=== PATIENT | male | born 1965 | race Caucasian/White ===

== ENCOUNTER 2020-03-22 17:35 | Inpatient (IN) ==
[2020-03-22] MEDS ORDERED: NORMAL SALINE 1,000 ML IV ONE (18:21)
--- NOTE | 2020-03-22 18:34 | ERNOTE ---
Dyspnea - Date Date of Service: 03/22/20 - General Presenting Symptoms: shortness of breath Time Seen by Provider: 03/22/20 17:56 Source: patient, RN notes reviewed Exam Limitations: no limitations - Immun/Allergies/Home Medications Immunizations: IMMUNIZATION HX Immunizations Up to Date Yes History of Influenza Vaccine No Hx Pneumococcal Vaccination No Allergies/Adverse Reactions: Allergies No Known Allergies Allergy (Unverified 03/22/20 17:55) Home Medications: HOME MEDICATIONS Acetaminophen [Tylenol] 1,000 mg PO PRN PRN 03/22/20 [Last Taken Unknown] Alprazolam [Xanax] 0.25 mg PO PRN PRN 03/22/20 [Last Taken Unknown] Ibuprofen 600 mg PO PRN PRN 03/22/20 [Last Taken Unknown] Sertraline HCl [Zoloft] 75 mg PO DAILY 03/22/20 [Last Taken Unknown] - History of Present Illness Narrative: Lesley is a 54-year-old male who presents to the emergency department from home for shortness of breath. This began 2 days ago. He has not been feeling well for approximately 12 days. He initially began having severe fatigue, then body aches and then a cough. He is not sure if he has had a fever, but he reports having had chills. He has been alternating Tylenol and ibuprofen but has not had any medication recently. He has no prior history of any underlying respiratory conditions and is not a smoker. His son and the son's girlfriend t ested positive for COVID-19, as did his a couple of days later. His has recovered. His PCP is Dr. Anjali George. Date (Duration): 03/10/20 Treatment OPERATIONS ADMINISTRATOR: none Initiating event: Reports: unknown Frequency of episodes: Reports: no prior episodes Modifying Factors - (Improves): Reports: rest Modifying Factors (Worsens): Reports: activity, coughing Associated Symptoms-Dyspnea: Denies: chest pain/discomfort, leg/calf pain, ankle/leg swelling Prior Treatment: Denies: recently seen Review of Systems - Review of Systems Constitutional: Present: chills, fatigue, malaise EYE: Absent: eye pain, eye discharge ENT: Present: sore throat. Absent: ear pain, nose congestion, nasal drainage Respiratory: Present: shortness of breath, cough. Absent: orthopnea Cardiology: Absent: chest pain, edema Gastrointestinal/Abdominal: Present: diarrhea. Absent: vomiting, abdominal pain Genitourinary: Present: no symptoms reported Musculoskeletal: Present: muscle pain, joint pain Skin: Absent: rash, lesions Neurological: Absent: headache, dizziness/light-headedness Endocrine: Present: no symptoms reported Hematologic/Lymphatic: Absent: easy bruising, easy bleeding Psych: Present: no symptoms reported Medical History (Last Reviewed 03/22/20 @ 18:31 by Kalie Guerrero NP) Anxiety Depression Hypertension Surgical History: Surgical History (Last Reviewed 03/22/20 @ 18:31 by Kalie Guerrero NP) H/O hernia repair Family History: Family History (Last Reviewed 03/22/20 @ 18:31 by Kalie Guerrero NP) Other No pertinent family history Social History: (Last Reviewed 03/22/20 @ 18:31 by Kalie Guerrero NP) Tobacco: Smoking Status: Never smoker Alcohol: alcohol intake frequency: holiday/special occasion Substance Use: substance use type: does not use Physical Exam - Physical Exam General Appearance: Present: wd/wn, alert, other - In no acute distress but appears to not feel well Head Exam: Present: normal inspection Eye Exam: Normal inspection: bilateral Ears, Nose, Throat: Present: pharyngeal erythema. Absent: abnormal TM (R), abnormal TM (L), sinus pain/drainage, dry mucous membranes Neck: Present: normal inspection, nontender, supple, full range of motion Respiratory: Present: no respiratory distress, accessory muscle use - mild, crackles - bibasilar Cardiovascular/Chest: Present: regular rate, rhythm, no murmur Extremity Exam: Present: normal inspection, no edema Neurological Exam: Present: alert, oriented, normal mood/affect, no motor/sensory deficits Skin Exam: Present: normal color, warm/dry Progress - Results and Orders Patient's Lab Results:: I have reviewed the patient's lab results. - Vital Signs Patient's Vital Signs:: I have reviewed the patient's vital signs. Vital Signs: Vital Signs 03/22/20 17:50 03/22/20 18:06 Temperature 37.6 C Pulse Rate 80 81 Respiratory Rate 20 20 Blood Pressure 127/75 150/73 H O2 Sat by Pulse Oximetry 89 L 95 - EKG EKG #1 EKG: NSR, RBBB, other - Lt ant fascicular block EKG read: Reviewed by me - X-Ray X-Ray #1 X-Ray: chest Interpretation: Interp. by me X-ray Comments: Marked bilateral patchy infiltrates suggestive of viral pneumonia - CT/Ultrasound CT/Ultrasound Narrative: CTA chest shows on acute embolic disease, findings consistent with severe atypical pneumonia per night rad prelim report - Progress/Reassessment Chief Complaint: Dyspnea Progress:: Improved Plan - Plan Plan: The patient has pneumonia due to COVID-19. Due to him not being able to maintain his oxygen saturation about 90%, Dr. Ramsay was contacted and the patient will be admitted to observation status. He has been started on IV dexamethasone and SQ Lovenox. Departure Clinical Impression: Pneumonia due to 2019-nCoV, Hypoxia - Departure Disposition: Still a patient Condition: Stable
[2020-03-22 18:45] LABS: Hematocrit 43.9 % (42.0-52.0); Hemoglobin 13.8 gm/dL (13.5-18.0); Mean Cell Volume 86.2 fl (78-100); Mean Corpuscular Hemoglobin 27.1 pg (27-31); Mean Corpuscular Hgb Conc 31.4 g/dl (32-36); Mean Platelet Volume 9.8 fl (8-11.3); Neutrophil # 3.8 K/mm3 (1.3-6.0); Neutrophil % 78.2 % (42-75.0); Platelet Count 164 K/mm3 (150-450); Red Blood Count 5.09 M/mm3 (4.7-6.0); Red Cell Distribution Width 14.3 % (11.5-14.0); White Blood Count 4.9 K/mm3 (4.0-10.5)
[2020-03-22 19:00] LABS: ALT 40 U/L (19-67); AST 46 U/L (0-48); Alkaline Phosphatase * 93 U/L (50-170); Anion Gap 10.9 mmol/L (6.8-13.8); BUN/Creatinine Ratio 14.5 (9.0-21.6); Bilirubin, Total 0.5 mg/dL (0.0-1.1); Blood Urea Nitrogen 11 mg/dL (6-23); Ca. Corrected For Albumin 8.7 mg/dL (8.4-10.2); Calcium * 8.2 mg/dL (7.9-10.9); Carbon Dioxide 29.2 mmol/L (24-32.6); Chloride 103 mmol/L (97-106); Glucose * 137 mg/dL (70-110); Potassium 4.1 mmol/L (3.4-4.6); Sodium 139 mmol/L (132-142); Total Protein 7.2 gm/dL (6.2-8.2)
[2020-03-22 19:05] LABS: Troponin I Less than 0.017 ng/mL (0.00-0.10)
[2020-03-22 19:36] LABS: COVID 19 - FMCH Detected (NotDetected)
[2020-03-22] MEDS ORDERED: DEXAMETHASONE SODIUM PHOSP/PF 10 MG/ML VIAL IV ONE (20:52)
[2020-03-22] MEDS ORDERED: ENOXAPARIN SODIUM 100 MG/ML SYRG SC ONE (20:52)
[2020-03-23] MEDS ORDERED: ACETAMINOPHEN 500 MG TABLET PO PRN (08:33)
[2020-03-23] MEDS ORDERED: ALPRAZolam 0.25 MG TABLET PO PRN (08:33)
[2020-03-23] MEDS: SERTRALINE HCL 50 MG TABLET PO SCH (09:22)
[2020-03-23] MEDS: ENOXAPARIN SODIUM 80 MG/0.8 ML DISP.SYRIN SC SCH ×2 (09:22→19:45)
[2020-03-23] MEDS: ZINC SULFATE 220 MG CAPSULE PO SCH (09:23)
--- NOTE | 2020-03-23 18:32 | HP ---
Chief Complaint - Chief Complaint Date of Service: 03/23/20 Time of Service: 18:32 Chief Complaint: SOB, aches History of Present Illness: Patient with hx of HTN, anxiety presented to the hospital with greater then 10 days symptoms consistent with COVID. He has positive contact exposure. He came in due to SOB and hypoxia. He does not use o2 at home but was requiring 4 L NC to maintain sat in the low 90s. His blood work was unremarkable. CT of his chest consistent with multifocal PNA with COVID. He was given lovenox and started on decadron. He was admitted to the [facility] where he can be monitored closely. Medical History (Last Reviewed 03/22/20 @ 18:31 by Kalie Guerrero NP) Anxiety Depression Hypertension Surgical History: Surgical History (Last Reviewed 03/22/20 @ 18:31 by Kalie Guerrero NP) H/O hernia repair Family History: Family History (Last Reviewed 03/22/20 @ 18:31 by Kalie Guerrero NP) Other No pertinent family history Social History: (Last Reviewed 03/22/20 @ 18:31 by Kalie Guerrero NP) Tobacco: Smoking Status: Never smoker Alcohol: alcohol intake frequency: holiday/special occasion Substance Use: substance use type: does not use Review Of Systems (GEN) - Review of Systems Generalized/Overall Review: Absent: Weakness, Chills, Fever Respiratory: Present: Cough, Shortness of Breath Cardiac: Absent: Chest Pain, Edema, Palpitations Abdominal: Absent: Nausea, Vomiting Genitourinary: Present: No Symptoms Reported Musculoskeletal: Present: Other - body aches Neurological: Present: No Symptoms Reported Skin: Present: No Symptoms Reported Endocrine: Present: No Symptoms Reported Immunizations: IMMUNIZATION HX Immunizations Up to Date Yes History of Influenza Vaccine No Hx Pneumococcal Vaccination No Allergies/Adverse Reactions: Allergies Allergy/AdvReac Type Severity Reaction Status Date / Time No Known Allergies Allergy Unverified 03/22/20 17:55 Home Medications: HOME MEDICATIONS Acetaminophen [Tylenol] 1,000 mg PO PRN PRN 03/22/20 [Last Taken Unknown] Alprazolam [Xanax] 0.25 mg PO PRN PRN 03/22/20 [Last Taken Unknown] Ibuprofen 600 mg PO PRN PRN 03/22/20 [Last Taken Unknown] Sertraline HCl [Zoloft] 75 mg PO DAILY 03/22/20 [Last Taken Unknown] Zinc 50 mg PO DAILY 03/22/20 [Last Taken Unknown] Bacillus Coagulans [Digestive Advantage] 1 ea PO TID 03/23/20 [Last Taken Unknown] Psyllium Husk/Aspartame [Metamucil Fiber Singles Packet] 3.4 gm PO PRN 03/23/20 [Last Taken Unknown] Exam - Exam Vital Signs: Vital Signs - Last Taken Temp 36.2 C 03/23/20 17:43 Pulse 80 03/23/20 17:43 Resp 16 03/23/20 17:43 BP 118/69 03/23/20 17:43 Pulse Ox 94 03/23/20 17:43 Constitutional: Present: Alert, Oriented x3, Cooperative, No distress ENT Exam: Present: hearing grossly normal Eye Exam: bilateral eye: normal inspection, EOMI Neck: Present: non-tender, supple Respiratory: Present: lungs clear, no accessory muscle use, other - O2 via NC. Absent: normal breath sounds - decreased breath sounds in the bases, respiratory distress Cardiovascular/Chest: Present: regular rate, rhythm, no murmur Abdomen: Present: soft, nontender, nondistended Skin Exam: Present: normal color, warm/dry Appearance: Present: appropriate appearance, appropriate insight Eye contact: Present: cooperative, good eye contact Thoughts: Present: normal thought pattern, normal mood /affect Diagnostic Studies: Abnormal Lab Results 03/22/20 03/22/20 03/22/20 Range/Units 18:25 18:25 18:25 MCHC 31.4 L (32-36) g/dl RDW 14.3 H (11.5-14.0) % Immature Gran % (Auto) 1.00 H (0.001-0.429) % Immature Gran # (Auto) 0.05 H (0.000-0.0310) K/mm3 Neutrophils % 78.2 H (42-75.0) % Lymphocytes % 13.7 L (20-51) % Lymphocytes # 0.67 L (1.5-3.5) k/mm3 D-Dimer 2.16 H (0.19-0.49) ug/mL Random Glucose 137 H (70-110) mg/dL Albumin 3.0 L (3.4-5.0) gm/dl SARS-CoV-2 (PCR) (NotDetected) 03/22/20 Range/Units 18:31 MCHC (32-36) g/dl RDW (11.5-14.0) % Immature Gran % (Auto) (0.001-0.429) % Immature Gran # (Auto) (0.000-0.0310) K/mm3 Neutrophils % (42-75.0) % Lymphocytes % (20-51) % Lymphocytes # (1.5-3.5) k/mm3 D-Dimer (0.19-0.49) ug/mL Random Glucose (70-110) mg/dL Albumin (3.4-5.0) gm/dl SARS-CoV-2 (PCR) Detected H (NotDetected) Laboratory Results WBC 4.9 K/mm3 (4.0-10.5) 03/22/20 18:25 RBC 5.09 M/mm3 (4.7-6.0) 03/22/20 18:25 Hgb 13.8 gm/dL (13.5-18.0) 03/22/20 18:25 Hct 43.9 % (42.0-52.0) 03/22/20 18:25 MCV 86.2 fl (78-100) 03/22/20 18:25 MCH 27.1 pg (27-31) 03/22/20 18:25 MCHC 31.4 g/dl (32-36) L 03/22/20 18:25 RDW 14.3 % (11.5-14.0) H 03/22/20 18:25 Plt Count 164 K/mm3 (150-450) 03/22/20 18:25 MPV 9.8 fl (8-11.3) 03/22/20 18:25 Immature Gran % (Auto) 1.00 % (0.001-0.429) H 03/22/20 18:25 Immature Gran # (Auto) 0.05 K/mm3 (0.000-0.0310) H 03/22/20 18:25 Neutrophils % 78.2 % (42-75.0) H 03/22/20 18:25 Lymphocytes % 13.7 % (20-51) L 03/22/20 18:25 Monocytes % 6.3 % (0.0-9) 03/22/20 18:25 Eosinophils % 0.6 % (0.0-3.0) 03/22/20 18: Basophils % 0.2 % (0.0-1.0) 03/22/20 18:25 Nucleated RBC % 0.0 k/mm3 (0-1) 03/22/20 18:25 Neutrophils # 3.8 K/mm3 (1.3-6.0) 03/22/20 18:25 Lymphocytes # 0.67 k/mm3 (1.5-3.5) L 03/22/20 18:25 Monocytes # 0.3 k/mm3 (0.0-1.0) 03/22/20 18: Eosinophils # 0.0 k/mm3 (0.0-0.7) 03/22/20 18: Absolute Basophils 0.0 k/mm3 (0.0-0.1) 03/22/20 18:25 D-Dimer 2.16 ug/mL (0.19-0.49) H 03/22/20 18:25 Sodium 139 mmol/L (132-142) 03/22/20 18:25 Plasma Sodium 140 mmol/L (130-142) 03/22/20 18:25 Potassium 4.1 mmol/L (3.4-4.6) 03/22/20 18:25 Chloride 103 mmol/L (97-106) 03/22/20 18:25 Carbon Dioxide 29.2 mmol/L (24-32.6) 03/22/20 18:25 Anion Gap 10.9 mmol/L (6.8-13.8) 03/22/20 18:25 BUN 11 mg/dL (6-23) 03/22/20 18:25 Creatinine 0.76 mg/dL (0.4-1.4) 03/22/20 18:25 Est GFR (Non-Af Amer) 113 mL/min (60-130) 03/22/20 18:25 BUN/Creatinine Ratio 14.5 (9.0-21.6) 03/22/20 18:25 Random Glucose 137 mg/dL (70-110) H 03/22/20 18:25 Lactic Acid, Venous 2.0 mmol/L (0.4-2.0) 03/22/20 18:25 Calcium 8.2 mg/dL (7.9-10.9) 03/22/20 18:25 Calcium Adj for Albumin 8.7 mg/dL (8.4-10.2) 03/22/20 18:25 Total Bilirubin 0.5 mg/dL (0.0-1.1) 03/22/20 18:25 AST 46 U/L (0-48) 03/22/20 18:25 ALT 40 U/L (19-67) 03/22/20 18:25 Alkaline Phosphatase 93 U/L (50-170) 03/22/20 18:25 Troponin I Less than 0.017 ng/mL (0.00-0.10) 03/22/20 18:25 Total Protein 7.2 gm/dL (6.2-8.2) 03/22/20 18:25 Albumin 3.0 gm/dl (3.4-5.0) L 03/22/20 18:25 Influenza Type A Ag Negative (NEGATIVE) 03/22/20 18:31 Influenza Type B Ag Negative (NEGATIVE) 03/22/20 18:31 SARS-CoV-2 (PCR) Detected (NotDetected) H 03/22/20 18:31 Group A Strep Rapid Negative (NEGATIVE) 03/22/20 18:05 Assessment/Plan - Narrative Narrative: Patient admitted to [facility] for COVID PNA continue lovenox and decadron. Sats maintained via NC. Will wean as tolerated. If he continues to do well, he can likely be DC tomorrow HTN stable Anxiety stable. Restarted home meds. Nurse to call with questions or concerns. - Assessment/Plan (1) Pneumonia due to 2019-nCoV Problem: Acute (2) Hypoxia Problem: Acute (3) Anxiety Problem: Acute (4) HTN (hypertension) Problem: Acute
[2020-03-24] MEDS: ENOXAPARIN SODIUM 80 MG/0.8 ML DISP.SYRIN SC SCH (08:25)
[2020-03-24] MEDS: SERTRALINE HCL 50 MG TABLET PO SCH (08:26)
[2020-03-24] MEDS: ZINC SULFATE 220 MG CAPSULE PO SCH (08:26)
--- NOTE | 2020-03-24 12:11 | DS ---
(1) Acute respiratory failure due to COVID-19 Problem: Resolved (2) Pneumonia due to 2019-nCoV Problem: Acute Date of Discharge:: 03/24/20 Hospital Course: Lesley is a 54 yo male admitted for acute respiratory failure secondary to COVID-19. He was admitted on 2lpm of oxygen via Nasal canula. Oxygen was adjusted as needed up to a maximum of 3lpm via NC, but then he began to improve and was ultimately weaned off of oxygen this morning. He has been off of oxygen for the past 6 hours without hypoxia and he feels well. He will be discharged to home. He did not require steroids or antivirals. Procedures Performed: none Results and Findings: Pending Mircobiology Results 03/22/20 18:33 Blood Blood Culture - Preliminary NO GROWTH 24 HOURS 03/22/20 18:25 Blood Blood Culture - Preliminary NO GROWTH 24 HOURS Lab Pending Results 03/22/20 18:05: Group A Strep Rapid Negative 03/22/20 18:25: WBC 4.9, RBC 5.09, Hgb 13.8, Hct 43.9, MCV 86.2, MCH 27.1, MCHC 31.4 L, RDW 14.3 H, Plt Count 164, MPV 9.8, Immature Gran % (Auto) 1.00 H, Immature Gran # (Auto) 0.05 H, Neutrophils % 78.2 H, Lymphocytes % 13.7 L, Monocytes % 6.3, Eosinophils % 0.6, Basophils % 0.2, Nucleated RBC % 0.0, Neutrophils # 3.8, Lymphocytes # 0.67 L, Monocytes # 0.3, Eosinophils # 0.0, Absolute Basophils 0.0 03/22/20 18:25: Sodium 139, Plasma Sodium 140, Potassium 4.1, Chloride 103, Carbon Dioxide 29.2, Anion Gap 10.9, BUN 11, Creatinine 0.76, Est GFR (Non-Af Amer) 113, BUN/Creatinine Ratio 14.5, Random Glucose 137 H, Calcium 8.2, Calcium Adj for Albumin 8.7, Total Bilirubin 0.5, AST 46, ALT 40, Alkaline Phosphatase 93, Troponin I Less than 0.017, Total Protein 7.2, Albumin 3.0 L 03/22/20 18:25: D-Dimer 2.16 H 03/22/20 18:25: Lactic Acid, Venous 2.0 03/22/20 18:31: Influenza Type A Ag Negative, Influenza Type B Ag Negative, SARS-CoV-2 (PCR) Detected H Discharge Location: Home Disposition: Home self-care Condition: Good Discharge Activity: Activity as tolerated Discharge Diet: General/regular food Problem Oriented Discharge Instructions to Patient/Family: COVID-19 Complete Home Medications List: Complete Home Medication List: Acetaminophen [Tylenol] 1,000 mg PO PRN PRN 03/22/20 Alprazolam [Xanax] 0.25 mg PO PRN PRN 03/22/20 Ibuprofen 600 mg PO PRN PRN 03/22/20 Sertraline HCl [Zoloft] 75 mg PO DAILY 03/22/20 Zinc 50 mg PO DAILY 03/22/20 Bacillus Coagulans [Digestive Advantage Probiotic] 1 ea PO TID 03/23/20 Psyllium Husk/Aspartame [Metamucil Fiber Singles Packet] 3.4 gm PO PRN 03/23/20
[2020-03-24 15:36] VITALS: BP 133/77
== END 2020-03-24 13:40 | disposition home or self-care (01) | DRG 177 ==
LOC: ER 17:35 → SCU 17:35 → OBSVTOIN 21:12 → SCU 22:25
PROVIDERS: ADMIT Family Medicine; ATTEND Family Medicine